=== PATIENT | female | born 1980 | race Hispanic/Latino ===

== ENCOUNTER 2018-03-25 08:05 | Inpatient (IN) | payer SELFPAY ==
[2018-03-25 09:01] LABS: BHCG - Serum Negative (NEGATIVE); Pregs Control Background? CLEAR/WHITE (CLR/WHITE); Pregs Control Bar Appear? YES (CONTROL BAR)
[2018-03-25 09:20] LABS: Chloride 91 mmol/L (98-107); Potassium 3.3 mmol/L (3.5-5.1); Sodium 120 mmol/L (136-145)
[2018-03-25] MEDS ORDERED: Morphine 4 MG/ML VIAL ONE ×3 (09:58→21:03)
[2018-03-25 10:30] LABS: Carbon Dioxide 18 mmol/L (22-29)
[2018-03-25 10:31] LABS: Anion Gap 14 mmol/L (10-20)
[2018-03-25 10:33] LABS: BUN (Urea Nitrogen) 7 mg/dL (7.0-18.7)
[2018-03-25 10:34] LABS: Bilirubin, Total 0.2 mg/dL (0.2-1.2); Calc. Creatinine Clearance 0 mL/min (70-130); Calcium 7.7 mg/dL (7.8-10.44); Estimated GFR-MDRD 90; Glucose 335 mg/dL (70-105)
[2018-03-25 10:35] LABS: Albumin 3.4 g/dL (3.5-5.0); Globulin 1.6 g/dL (2.4-3.5)
[2018-03-25 10:37] LABS: AST (SGOT) 18 U/L (5-34); Alkaline Phosphatase 83 U/L (40-150)
[2018-03-25 10:38] LABS: ALT (SGPT) 36 U/L (8-55)
[2018-03-25 10:39] LABS: Lipase 982 U/L (8-78)
[2018-03-25 10:41] LABS: Bilirubin Negative (Negative); Blood, Urine Negative (Negative); Clarity CLEAR (Clear); Glucose, Urine (Dipstick) >=1000 mg/dL (Negative); Leukocyte Negative (Negative); Nitrite Negative (Negative); Protein, Urine (Dipstick) Negative (Neg-Trace); Specific Gravity, Urine 1.032 (1.002-1.036); Urobilinogen 0.2 mg/dL (0.2-1.0)
[2018-03-25 12:09] LABS: Troponin I Less than 0.010 ng/mL (< 0.028)
[2018-03-25] MEDS ORDERED: Insulin Regular 100 units/100 ml in NS IVPB SCH (12:45)
--- NOTE | 2018-03-25 12:48 | PDOC.EVN ---
Event Note - Event Note Event Note: I was called to admit the patient. This patient has triglycerides uncountable above 9500, the patient appears very ill, is hemodynamically stable but appears sick. Will need emergent TPE which is not done here. Case d/w GI as well as ER attending. For now will try ER to ER transfer for plasma exchange, will cancel the admission. Will assist in stabilizing patient in the ER. Will do insulin drip as well as heparin drip, start D5W at 150cc/hr if sugars drop below 200, will check sugars q4hrs. Will hold off on admission as the patient requires TPE which is not done here. If no facility is available then will admit the patient and check KUB in AM, repeat triglycerides in AM, cont with heparin drip and insulin drip, will also repeat electrolytes and check fibrinogen panel, will give rocephin 1g IV q24hrs. VERY HIGH RISK for necrotizing pancreatitis if TPE not done in a timely manner. Case and plan d/w patient, family, ER and GI attending at length, everyone is in agreement with this plan. Nurse updated and to call me if any issues.
[2018-03-25] MEDS ORDERED: Sodium Chloride 0.9% 1,000 ML IV PRN ×4 (13:02)
[2018-03-25] MEDS ORDERED: CCU Electrolyte Replacement 1 EACH IVPB SCH (13:02)
[2018-03-25] MEDS ORDERED: NS 0.9% w/ 20 MEQ KCL 1,000 ML IV PRN ×2 (13:02)
[2018-03-25] MEDS ORDERED: Dextrose 5 %-0.45 % NaCl 1,000 ML IV PRN (13:02)
[2018-03-25] MEDS ORDERED: HUMULIN R 100 UNITS in Sodium Chloride 0.9% 100 ML IVPB SCH (13:15)
[2018-03-25] MEDS ORDERED: Heparin 10,000 UNITS/ 10 ML VIAL SLOW IVP SCH ×2 (13:15→22:00)
[2018-03-25] MEDS ORDERED: Heparin 25,000 units/D5W 500 ML IVPB SCH (13:15)
[2018-03-25] MEDS ORDERED: Potassium Phosphate 9 MMOL in Sodium Chloride 0.9% 100 ML IVPB PRN (13:18)
[2018-03-25] MEDS ORDERED: Potassium Chloride 40 MEQ in Sodium Chloride 0.9% 250 ML 250 ML IVPB PRN (13:18)
[2018-03-25] MEDS ORDERED: Potassium Phosphate 12 MMOL in Sodium Chloride 0.9% 250 ML 250 ML IV PRN (13:18)
[2018-03-25] MEDS ORDERED: CCU ELECTROLYTE REPLACEMENT PROTOCOL FS PRN (13:18)
[2018-03-25] MEDS ORDERED: Potassium Phosphate 15 MMOL in Sodium Chloride 0.9% 250 ML 250 ML IV PRN (13:18)
[2018-03-25] MEDS ORDERED: Magnesium 2 GM/NS 0.9% 100 ML 2 GM in Premix Bag 1 BAG IVPB PRN (13:18)
[2018-03-25] MEDS ORDERED: Potassium Chloride 20 MEQ TAB PO PRN (13:18)
[2018-03-25] MEDS ORDERED: Magnesium Oxide 400 MG TAB PO PRN ×2 (13:18)
[2018-03-25] MEDS ORDERED: Potassium Chloride 40 MEQ in Premix Bag 1 BAG IVPB PRN (13:18)
[2018-03-25 13:19] LABS: Chloride 98 mmol/L (98-107); Potassium 3.2 mmol/L (3.5-5.1)
[2018-03-25 13:20] LABS: Anion Gap 8 mmol/L (10-20); Carbon Dioxide 19 mmol/L (22-29); Sodium 122 mmol/L (136-145)
[2018-03-25 13:21] LABS: BUN (Urea Nitrogen) 7 mg/dL (7.0-18.7); Calcium 7.4 mg/dL (7.8-10.44); Glucose 278 mg/dL (70-105)
[2018-03-25 13:22] LABS: Calc. Creatinine Clearance 0 mL/min (70-130); Estimated GFR-MDRD 89
[2018-03-25 13:45] LABS: Hemoglobin 13.3 g/dL (12.0-16.0); Platelet Count 165 thou/uL (130-400)
[2018-03-25] MEDS ORDERED: cefTRIAXone\\ROCEPHIN 2 GM in Sodium Chloride 0.9% 100 ML IVPB SCH (14:00)
[2018-03-25 14:21] LABS: Sodium 136 mmol/L (136-145)
[2018-03-25 14:22] LABS: Chloride 103 mmol/L (98-107); Glucose 248 mg/dL (70-105); Potassium 3.8 mmol/L (3.5-5.1)
[2018-03-25 14:23] LABS: Anion Gap 18 mmol/L (10-20); Calcium 7.4 mg/dL (7.8-10.44); Carbon Dioxide 19 mmol/L (22-29)
[2018-03-25 14:25] LABS: BUN (Urea Nitrogen) 5 mg/dL (7.0-18.7); Calc. Creatinine Clearance 0 mL/min (70-130); Estimated GFR-MDRD 90
[2018-03-25] MEDS ORDERED: Insulin Regular 300 UNITS/3 ML VIAL ONE (14:50)
[2018-03-25] MEDS ORDERED: Ondansetron PF 4 MG/2 ML Vial ONE ×2 (15:09→21:03)
[2018-03-25] MEDS ORDERED: cefTRIAXone\\ROCEPHIN 2 GM VIAL ONE (15:30)
[2018-03-25] MEDS ORDERED: MEROPENEM 1 GM/50 ML 1 GM in Premix Bag 1 BAG IVPB SCH (15:45)
[2018-03-25] MEDS ORDERED: Metoclopramide HCl 10 MG/2 ML VIAL ONE (15:45)
[2018-03-25 15:58] LABS: Sodium 137 mmol/L (136-145)
[2018-03-25 15:59] LABS: Anion Gap 19 mmol/L (10-20); Carbon Dioxide 18 mmol/L (22-29); Chloride 104 mmol/L (98-107); Potassium 4.1 mmol/L (3.5-5.1)
[2018-03-25 16:00] LABS: Calcium 7.1 mg/dL (7.8-10.44); Glucose 250 mg/dL (70-105)
[2018-03-25 16:01] LABS: Albumin 3.4 g/dL (3.5-5.0); Alkaline Phosphatase 82 U/L (40-150); Bilirubin, Total 0.3 mg/dL (0.2-1.2); Globulin 2.5 g/dL (2.4-3.5); Protein, Total 5.9 g/dL (6.0-8.3)
[2018-03-25 16:02] LABS: ALT (SGPT) 52 U/L (8-55); AST (SGOT) 46 U/L (5-34); BUN (Urea Nitrogen) 5 mg/dL (7.0-18.7); Calc. Creatinine Clearance 0 mL/min (70-130); Estimated GFR-MDRD Greater than 90
--- NOTE | 2018-03-25 16:24 | CT ---
CT ABDOMEN AND PELVIC WITH CONTRAST: HISTORY: Abdominal pain. COMPARISON: CT from 04/03/2012. FINDINGS: There are some mild atelectatic changes in the lung bases. No pericardial effusion. There is diffus e hepatic steatosis. There is inflammation in the anterior perirenal space, surrounding the pancreatic tail, suggesting pa ncreatitis. The pancreatic head is unremarkable. The common bile duct measures up to 5 mm. There are no dilated loops of large or small bowel. There is an indwelling Buck catheter. No hydronephrosis. 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 There is no acute osseous abnormality. IMPRESSION: 1. Findings suggesting uncomplicated acute edematous pancreatitis. 2. Diffuse hepatic steatosis. 3. Nondilated common bile duct. POS: NGUYEN
[2018-03-25] MEDS ORDERED: Heparin 25,000 units/D5W 500 ML ONE (16:27)
[2018-03-25] MEDS ORDERED: Heparin 1,000 UNITS/ML VIAL ONE (16:28)
[2018-03-25] MEDS ORDERED: Iopamidol 370 76% 100 ML VIAL ONE (17:14)
[2018-03-25 18:10] LABS: Anion Gap 15 mmol/L (10-20); BUN (Urea Nitrogen) 4 mg/dL (7.0-18.7); Calc. Creatinine Clearance 0 mL/min (70-130); Calcium 8.3 mg/dL (7.8-10.44); Carbon Dioxide 20 mmol/L (22-29); Chloride 93 mmol/L (98-107); Estimated GFR-MDRD Greater than 90; Glucose 158 mg/dL (70-105); Sodium 125 mmol/L (136-145)
[2018-03-25] MEDS: Metoclopramide HCl 10 MG/2 ML VIAL IVP SCH (18:14)
--- NOTE | 2018-03-25 18:14 | CON ---
DATE OF CONSULTATION: 03/25/2018 TYPE OF CONSULTATION: Gastroenterology consultation. CHIEF COMPLAINT: Abdominal pain. HISTORY OF PRESENT ILLNESS: Ms. Magana is a 37-year-old woman with a history of hypertriglyceridemia, who presented to the emergency room today with severe epigastric pain and vomiting. She started developing diffuse aching, severe upper abdominal pain yesterday morning. The pain progressed and she started vomiting extensively. She went to the emergency room and labs showed very high triglyceride levels and elevated lipase consistent with acute pancreatitis. She quit taking her TriCor about a week before the onset of the symptoms because she ran out of the medication. She has a sister, who has had hypertriglyceridemia induced pancreatitis in the past as well. She has had no recent weight changes. No diarrhea, constipation, or blood in the stool. The pain persists now and she has received pain medicine in the ER with some improvement. OBJECTIVE: GENERAL: She is in no acute distress. Alert and oriented x3. HEENT: Eyes have no scleral icterus. Oropharynx is clear without lesions. No cervical or supraclavicular lymphadenopathy. LUNGS: Clear to auscultation bilaterally. HEART: Regular rate and rhythm without murmur. ABDOMEN: Soft, tender diffusely but more so in the upper abdomen. No guarding. Bowel sounds are hypoactive. EXTREMITIES: No lower extremity edema. Cranial nerves are grossly intact. LABORATORY DATA: Sodium 120, potassium 3.3, chloride 91, CO2 of 18, BUN 7, creatinine 0.72, glucose 335, calcium 7.7, bilirubin 0.2, AST 18, ALT 36, alkaline phosphatase 83, albumin 3.4. Lipase 982 with upper limit of normal at this lab of 78. REVIEW OF SYSTEMS: Negative x10 systems reviewed except as stated in the history of present illness. ALLERGIES: NO KNOWN DRUG ALLERGIES. MEDICATIONS: Prior to admission; 1. Metformin. 2. Lamictal. 3. Gabapentin. 4. Zocor. 5. TriCor, she is on 145 mg daily. 6. Trazodone, which she has not been taking recently. 7. Hydroxyzine. PAST MEDICAL HISTORY: Diabetes mellitus, hypertriglyceridemia, bipolar disorder. PAST SURGICAL HISTORY: Umbilical hernia repair and cholecystectomy. FAMILY HISTORY: Positive for colon cancer in her father in his 70s. She has had no prior colonoscopy. Her mother had colon polyps. She has multiple siblings with hypertriglyceridemia and a sibling who has had hypertriglyceridemia induced pancreatitis. IMPRESSION: Hypertriglyceridemia induced pancreatitis. Her triglyceride level is greater than 9500. She has received 1 L normal saline in the ER. Her calcium is a little bit low at 7.7. Her albumin is 3.4. No other signs of secondary organ failure at this point. Primary goal now is to get the triglyceride level down to try to avoid necrotizing pancreatitis. RECOMMENDATIONS: 1. She is being given additional lactated Ringer's bolus and then will be followed by high rate IV fluid infusion. 2. Insulin drip. We will start 15 units/hour and given now that her blood sugars drop below 300, we will add in D5 normal saline as her maintenance fluid. 3. Continue to follow trend of the triglycerides and other labs. 4. We will evaluate transfer from ER to ER for a center that can do plasmapheresis. Given that there may be a significant delay in initiation of plasmapheresis, again, insulin drip is being started now. Job ID: [id number]
[2018-03-25] MEDS: Sodium Chloride 0.9% 1,000 ML IV SCH (18:15)
[2018-03-25] MEDS ORDERED: D5 1/2 NS w/20 mEq KCL 1,000 ML ONE (18:27)
[2018-03-25] MEDS ORDERED: Potassium Chloride 20 MEQ in Premix Bag 1 BAG IVPB SCH (18:30)
[2018-03-25 19:28] LABS: Carbon Dioxide 19 mmol/L (22-29); Chloride 102 mmol/L (98-107); Potassium 3.2 mmol/L (3.5-5.1); Sodium 136 mmol/L (136-145)
[2018-03-25 19:29] LABS: Anion Gap 18 mmol/L (10-20); Glucose 199 mg/dL (70-105)
[2018-03-25 19:30] LABS: Bilirubin, Total 0.4 mg/dL (0.2-1.2); Protein, Total 5.2 g/dL (6.0-8.3)
[2018-03-25 19:31] LABS: Albumin 3.2 g/dL (3.5-5.0); Alkaline Phosphatase 77 U/L (40-150)
[2018-03-25 19:32] LABS: ALT (SGPT) 46 U/L (8-55); AST (SGOT) 24 U/L (5-34)
[2018-03-25 19:33] LABS: PTT Greater than 250.0 SEC (22.9-36.1)
[2018-03-25 19:45] LABS: BUN (Urea Nitrogen) Less than 4 mg/dL (7.0-18.7); Calc. Creatinine Clearance 0 mL/min (70-130)
[2018-03-25 19:46] LABS: Estimated GFR-MDRD Greater than 90
--- NOTE | 2018-03-25 20:13 | HP ---
DATE OF CONSULTATION: EMERGENCY ROOM CONSULTATION CHIEF COMPLAINT: Abdominal pain. HISTORY OF PRESENT ILLNESS: This is a 37-year-old female, who apparently ran out of her medications 2 to 3 weeks back and has not been taking any of her home medications, insulin, or cholesterol medications for the last 2 to 3 weeks. The patient was taken to the outside facility for not feeling well and transferred here to the emergency room at [facility]. The patient was found to be in DKA as well as pancreatitis. The patient's cholesterol level was above 1400 and triglycerides were unaccountable above 9500. Internal Medicine was consulted for emergency room management and care for her medical problems. The patient currently states that she feels bad and has some nausea as well as abdominal pain. Sister is at bedside provides a history of triglycerides running in the family and apparently, other family members have also had triglyceride-induced pancreatitis before. The patient otherwise has no other complaints or issues. No alleviating or aggravating factors. Denies that this has ever happened to her before. The patient is seen and examined in the ER. All questions answered. Family at bedside. ALLERGIES: SULFAMETHOXAZOLE AND TRIMETHOPRIM. PAST MEDICAL HISTORY: Hypertension, hyperlipidemia, and diabetes mellitus. SOCIAL HISTORY: Denies smoking or drinking. FAMILY HISTORY: Noncontributory. REVIEW OF SYSTEMS: All systems reviewed. Pertinent positives in HPI, otherwise negative. MEDICATIONS: See MAR. PHYSICAL EXAMINATION: VITAL SIGNS: Blood pressure 110/88, temperature of 98, heart rate of 100, and saturations 100% on room air. GENERAL: The patient appears in moderate discomfort, lying in bed. HEENT: Pupils equal and reactive to light and accommodation. Extraocular muscles intact. Oral cavity, moist and pink. NECK: Supple and nontender. Mobile thyroid appreciated. CARDIOVASCULAR: Regular rate and rhythm. S1 and S2. No murmurs, rubs, or gallops appreciated. PULMONARY: Clear to auscultation bilaterally. No increase in AP diameter. No respiratory distress. ABDOMEN: Positive tenderness to palpation on the epigastric region. Slightly rotund abdomen. Positive bowel sounds. Otherwise, no rebound or guarding noted. EXTREMITIES: Trace pitting edema. 2+ peripheral pulses bilaterally noted. NEUROLOGIC: Cranial nerves 2 through 12 intact. Follows all commands. LABORATORY DATA: CBC within normal limits. Basic metabolic panel shows serum sodium of 122, potassium of 3.2, bicarb of 19, and glucose of 278. Hemoglobin is 7.6. Calcium 7.4. Triglycerides above 9500 unaccountable, cholesterol 1480, and lipase 982. Beta-hydroxybutyric acid positive at 0.41. ASSESSMENT: 1. Diabetic ketoacidosis. 2. Hypertriglyceridemia-induced pancreatitis. 3. Pancreatitis. 4. Abdominal pain. 5. Hypertension. 6. Diabetes mellitus, type 2. 7. Edema. PLAN: At this point in time, we will keep the patient in the emergency room and try to transfer the patient to the facility that can perform total plasmapheresis and plasma exchange. The patient is in rapid need of TPE, otherwise she is very high risk for having necrotizing pancreatitis. We will start the patient on an insulin drip as well as a heparin drip. We will also give the patient Rocephin IV [address] scan with contrast pending, bolus fluids. Accu-Cheks q.1 hour per DKA protocol. Also, lab checks and lab data are to be done in the evening as well as in the a.m. GI evaluation completed. Renal evaluation completed. At this point in time, this facility does not have the ability to perform total plasma exchange. It will be recommended that this patient will be transferred ER to ER to facility that can perform total plasma exchange as medically it is very difficult to bring down levels of triglycerides. Plasmapheresis if done in the next 24 to 48 hours, she probably would have a good outcome considering that her pain symptoms started approximately 12 hours ago. Case and plan discussed with the patient and family at length. They understand and agree with this plan. Job ID: [id number]
[2018-03-25 20:32] LABS: Glucose 194 mg/dL (70-105)
--- NOTE | 2018-03-25 20:42 | CON ---
DATE OF CONSULTATION: TYPE OF CONSULTATION: Nephrology. REASON FOR CONSULTATION: Hypertriglyceridemia. HISTORY OF PRESENT ILLNESS: This is a 37-year-old female, who presented to the hospital with prolonged nausea and vomiting. The patient was noted to have a triglyceride of more than 9000 and was noted to have pancreatitis. The patient also had elevated sugars and was noted to have hyponatremia and hypokalemia. The patient can give no further history. PAST MEDICAL HISTORY: For hypertension, diabetes mellitus poorly controlled, seizures, cholecystectomy for ESRD. ALLERGIES: REVIEWED. HOME MEDICATIONS: List reviewed. REVIEW OF SYSTEMS: A 15-point review of system was performed negative except for noted above. GENERAL: HEAD: NECK: No swelling or lumps. NOSE: No epistaxis or discharge. EYES: No diplopia or pain. RESPIRATORY: CARDIOVASCULAR: GASTROINTESTINAL: /ELECTROMECHANICAL ASSEMBLY TECHNICIAN: MUSCULOSKELETAL: No joint pain. NEUROPSYCHIATIC SYSTEMS: No suicidal ideation. No ideation. SKIN: Denies any rash or ulcer. CONSTITUTIONAL: No fever or chills. PHYSICAL EXAMINATION: VITAL SIGNS: Pulse 70, breathing 16, and blood pressure 130/70. GENERAL APPEARANCE AND MENTAL STATUS: Fair. HEAD/NECK: Normocephalic. Atraumatic. EYES: EOMI. No deformity. EARS: Clear. No ulcers. NOSE: Intact. No lesions. MOUTH: Clear. No discharge. THROAT: Clear. No exudate. LUNGS: Clear. No crackles. CARDIAC: S1, S2. No rub. ABDOMEN: Benign. Bowel sounds positive. GENITALIA/RECTUM: Buck absent. BACK/EXTREMITIES: Edema 0+. NEUROLOGIC: Alert and motor intact. SKIN: LYMPHATICS: LABORATORY DATA: Sodium 122, potassium 3.2, and creatinine 0.73. ASSESSMENT AND PLAN: 1. Acute kidney injury, chronic kidney disease stage 2 due to dehydration. Continue hydration. We would recommend checking urine sodium. 2. Diabetic ketoacidosis. Management per primary team. 3. Hypertriglyceridemia. Plasmapheresis is not available for and it is not the standard-formal treatment. Management per GI. 4. Hyperglycemia. Management per primary team. I will order a serum osmolality, urine osmolality, and based on these labs, replete the hyponatremia. Hypokalemia, recommend potassium replacement. Overall prognosis is extremely poor. Job ID: [id number]
[2018-03-25 21:34] LABS: Sodium 133 mmol/L (136-145)
[2018-03-25 21:35] LABS: Anion Gap 17 mmol/L (10-20); Carbon Dioxide 17 mmol/L (22-29); Chloride 103 mmol/L (98-107); Potassium 3.7 mmol/L (3.5-5.1)
[2018-03-25 21:36] LABS: Calcium 7.2 mg/dL (7.8-10.44); Glucose 250 mg/dL (70-105)
[2018-03-25 21:37] LABS: BUN (Urea Nitrogen) Less than 4 mg/dL (7.0-18.7)
[2018-03-25 21:38] LABS: Calc. Creatinine Clearance 0 mL/min (70-130); Estimated GFR-MDRD Greater than 90
[2018-03-25] MEDS ORDERED: Heparin 25,000 units/D5W 500 ML IV SCH (22:00)
[2018-03-25 22:42] LABS: Glucose 233 mg/dL (70-105)
--- NOTE | 2018-03-25 23:00 | PDOC.EVN ---
Event Note - Event Note Event Note: Called by ER attending regarding pt and unsuccessful transfer to higher level of care x 3 facilities currently. Pt needs TPE but unavailable at local facility but while awaiting transfer to higher level of care pt will be admitted to CCU and continued on current tx for DKA, IV Heparin, IV abx and hemodynamic monitoring. Spoke with CCU charge nurse regarding need for active transfer when available but will monitor and treat pending transfer in the CCU. Updated pt and sister regarding current status and they verbalize agreement. Pt remains critical due to DKA, Acute Pancreatitis, severe hypertriglyceridemia.
[2018-03-25 23:37] LABS: Glucose 238 mg/dL (70-105)
--- NOTE | 2018-03-25 23:42 | CON ---
DATE OF CONSULTATION: 03/25/2018 HISTORY OF PRESENT ILLNESS: Ms. Magana is a 37-year-old white female who was initially evaluated at [place] [facility] complaining of chest pain. During the initial workup, she was found to have severe hypertriglyceridemia. She was also noted to be hyponatremic. We are consulted for the hyponatremia. This afternoon, on examination of the patient, she was feeling better. REVIEW OF SYSTEMS: No chest pain or shortness of breath. No nausea. No vomiting. No diarrhea. No constipation. No abdominal pain. No syncopal episode. No productive cough. No fever or chills. No diarrhea. No hematochezia. No melena. No hematemesis. Positive for abdominal discomfort. Positive for transient chest pain. MEDICATIONS: Her medications include: 1. Trazodone 100 mg at bedtime. 2. Lamictal 150 mg q.a.m. 3. Metformin 750 mg ER tablet daily. 4. Hydroxyzine 25 mg tablet t.i.d. p.r.n. 5. Fenofibrate 150 mg three times a day. 6. Atorvastatin 20 mg at bedtime. PAST MEDICAL HISTORY: 1. History of hypertriglyceridemia. 2. Hypertension. 3. Type 2 diabetes mellitus. PAST SURGICAL HISTORY: 1. Status post umbilical hernia repair. 2. Status post cholecystectomy. SOCIAL HISTORY: The patient lives in [place]. She is , lives with her sister, one child, occasional smoking previously averaging one-half pack a day. Alcohol, none. Active lifestyle. FAMILY HISTORY: No family history of ESRD. ALLERGIES: BACTRIM. TRAUMA: None. IMMUNIZATION: Up-to-date. HOSPITALIZATIONS: Please see past medical history. PHYSICAL EXAMINATION: VITAL SIGNS: Blood pressure is noted at 130/70, heart rate 70. GENERAL: Noted to be awake, alert, comfortable, not in distress. SKIN: Adequate turgor. HEENT: She has a pinkish conjunctivae. Anicteric sclerae. NECK: No neck mass. No carotid bruits. No JVD. CHEST: No deformities. LUNGS: Clear breath sounds. HEART: Normal sinus rhythm. No murmurs, gallops, or rubs. ABDOMEN: Globular, soft, nontender. No masses. EXTREMITIES: No edema, no deformities. NEUROLOGICAL: Moving all extremities. No tremors or asterixis. No ataxia. LABORATORIES: Verbal report of triglyceride of above 9,500. March 25, 2018, sodium 136, potassium 3.8, chloride 103, carbon dioxide 19, BUN 5, creatinine 0.72, glucose 248, calcium 7.4. Serum osmolality is 288. March 25, 2018, 11:28 a.m., sodium is 122. March 25, 2018, serum sodium 120. Serum osmolality was 295. TSH was reported at 1.0. Cortisol is 20, uric acid 2.5. ASSESSMENT AND PLAN: Urinalysis, relatively benign. Specific gravity of 1032 and a glucose of more than 1000. No protein, no red cell casts. No white cell casts. No pigmented granular casts. Chest x-ray; no CHF. ASSESSMENT AND PLAN: 1. Hyponatremia - this is most likely pseudohyponatremia in a background of markedly elevated triglyceride. Of interest, the serum sodium, when it was low, the serum osmolality was normal. This is seen in people who have hypertriglyceridemia causing pseudohyponatremia. Management is essentially supportive. 2. Hypertriglyceridemia - the patient for possible transfer to an outside hospital to undergo ? plasmapheresis. Due to the pseudohyponatremia diagnosis, we will be signing off. Please call if needed. Job ID: [id number]
[2018-03-26] MEDS ORDERED: HUMULIN R 100 UNITS in Sodium Chloride 0.9% 100 ML IVPB SCH (00:45)
[2018-03-26] MEDS: Metoclopramide HCl 10 MG/2 ML VIAL IVP SCH ×2 (00:45→06:01)
[2018-03-26 00:47] LABS: Glucose 220 mg/dL (70-105)
[2018-03-26 00:52] VITALS: BMI 35.6
[2018-03-26] MEDS ORDERED: Morphine 4 MG/ML VIAL SLOW IVP PRN (01:09)
[2018-03-26] MEDS ORDERED: Ondansetron PF 4 MG/2 ML Vial SLOW IVP PRN (01:10)
[2018-03-26] MEDS: Sodium Chloride 0.9% 1,000 ML IV SCH (01:12)
[2018-03-26] MEDS ORDERED: Ondansetron PF 4 MG/2 ML Vial SLOW IVP SCH (01:15)
[2018-03-26] MEDS: D5 1/2 NS w/20 mEq KCL 1,000 ML IV PRN ×2 (02:57→06:17)
[2018-03-26 02:58] LABS: Creatinine, Urine 117.91 mg/dL (47-110)
[2018-03-26 03:39] LABS: Anion Gap 16 mmol/L (10-20); BUN (Urea Nitrogen) Less than 4 mg/dL (7.0-18.7); Calc. Creatinine Clearance 168 mL/min (70-130); Calcium 7.3 mg/dL (7.8-10.44); Carbon Dioxide 17 mmol/L (22-29); Chloride 100 mmol/L (98-107); Estimated GFR-MDRD Greater than 90; Glucose 204 mg/dL (70-105); Potassium 3.4 mmol/L (3.5-5.1); Sodium 130 mmol/L (136-145)
[2018-03-26] MEDS ORDERED: Potassium Chloride 40 MEQ in Sodium Chloride 0.9% 250 ML 250 ML IVPB SCH (04:45)
[2018-03-26 05:31] VITALS: TEMP 99.3
== END 2018-03-26 06:50 | disposition short-term general hospital (02) | DRG 438 ==
LOC: ERS 08:05 → ERHOLD 10:00 → CCU 03-26 00:20
PROVIDERS: ADMIT Internal Medicine; ATTEND Internal Medicine
DX: K85.80 Other acute pancreatitis without necrosis or infection (principal); E11.10 Type 2 diabetes mellitus with ketoacidosis without coma; N17.9 Acute kidney failure, unspecified; E78.1 Pure hyperglyceridemia; F31.9 Bipolar disorder, unspecified; E87.6 Hypokalemia; E86.0 Dehydration; N18.2 Chronic kidney disease, stage 2 (mild); I12.9 Hypertensive chronic kidney disease with stage 1 through stage 4 chronic kidney disease, or unspecified chronic kidney disease; Z79.84 Long term (current) use of oral hypoglycemic drugs; Z79.899 Other long term (current) drug therapy; Z98.890 Other specified postprocedural states; Z90.49 Acquired absence of other specified parts of digestive tract; Z88.2 Allergy status to sulfonamides
CPT/HCPCS: 36415; 36416; 74177; 80048; 81003; 82010; 82533; 82570; 82947; 83690; 83930; 83935; 84300; 84443; 84478; 84550; 84703; 85730; 93005; J0131; J0696; J1644; J1815; J2185; J2270; J2405; J2765; J3480; J7050

== ENCOUNTER 2018-12-27 23:22 | Emergency (ER) | payer SELFPAY ==
[2018-12-27] MEDS ORDERED: Ondansetron PF 4 MG/2 ML Vial ONE (23:42)
[2018-12-27 23:51] LABS: #Eosinphils 0.2 thou/uL (0.0-0.7); #Lymphocytes 2.8 thou/uL (1.20-3.40); #Monocytes 0.6 thou/uL (0.11-0.59); #Neutrophils 4.2 thou/uL (1.40-6.50); %Basophils 0.2 % (0.0-1.0); %Eosinophils 2.5 % (0.0-10.0); %Lymphocytes 35.6 % (21.0-51.0); %Monocytes 7.4 % (0.0-10.0); %Neutrophils 54.2 % (42.0-75.0); Hemoglobin 14.9 g/dL (12.0-16.0); Mean Corpuscular HGB CONC 35.1 g/dL (32.0-36.0); Mean Corpuscular Hemoglobin 30.8 pg (27.0-31.0); Mean Corpuscular Volume 87.9 fL (78.0-98.0); Mean Platelet Volume 7.5 fL (7.4-10.4); Platelet Count 311 thou/uL (130-400); RBC Distribution Width 13.3 % (11.5-14.5); Red Blood Cell (RBC) Count 4.82 mill/uL (4.20-5.40); White Blood Cell (WBC) Count 7.8 thou/uL (4.8-10.8)
[2018-12-27 23:51] LABS: Bilirubin Negative (Negative); Blood, Urine 2+ (Negative); Clarity Turbid (Clear); Glucose, Urine (Dipstick) Normal (Negative); Leukocyte 500 Leu/uL (Negative); Nitrite Negative (Negative); Protein, Urine (Dipstick) 30 mg/dL (Neg-Trace); Urobilinogen Normal mg/dL (Less than 2)
[2018-12-27 23:59] LABS: RBC/HPF 0-3 HPF (0-3)
[2018-12-28] LABS: Bacteria/HPF 1+ HPF (None Seen); Transitional Epithelial 0-3 HPF (None Seen)
[2018-12-28 00:12] LABS: ALT (SGPT) 30 U/L (8-55); AST (SGOT) 15 U/L (5-34); Alkaline Phosphatase 84 U/L (40-110); Anion Gap 14 mmol/L (10-20); BUN (Urea Nitrogen) 16 mg/dL (7.0-18.7); Bilirubin, Total 0.2 mg/dL (0.2-1.2); Calc. Creatinine Clearance 0 mL/min (70-130); Calcium 9.4 mg/dL (7.8-10.44); Carbon Dioxide 25 mmol/L (22-29); Chloride 103 mmol/L (98-107); Estimated GFR-MDRD 78; Globulin 2.4 g/dL (2.4-3.5); Glucose 134 mg/dL (70-105); Potassium 3.5 mmol/L (3.5-5.1); Protein, Total 6.4 g/dL (6.0-8.3); Sodium 138 mmol/L (136-145)
[2018-12-28] MEDS ORDERED: Morphine 4 MG/ML VIAL ONE (00:19)
[2018-12-28 00:21] LABS: BHCG - Serum Negative (NEGATIVE); Pregs Control Background? CLEAR/WHITE (CLR/WHITE); Pregs Control Bar Appear? YES (CONTROL BAR)
[2018-12-28] MEDS ORDERED: Azithromycin 250 MG TAB ONE (02:57)
[2018-12-28] MEDS ORDERED: Lidocaine 1% PF 5 ML VIAL ONE (02:57)
[2018-12-28] MEDS ORDERED: cefTRIAXone\\ROCEPHIN 250 MG VIAL ONE (02:57)
--- NOTE | 2018-12-28 07:59 | ULT ---
PRELIMINARY REPORT/[facility]/EMERGENCY AFTER HOURS PROCEDURE: PROCEDURE INFORMATION: Exam: US Pelvis Complete, Transabdominal and US Pelvis, Transvaginal and US Duplex Artery and Vein, O varies, Complete Exam date and time: 12/28/2018 1:06 AM Clinical history: 38 years old, female; Slow transit; Patient HX: Pelvic pain from midline to llq x 2 days, constipation (on/off) TECHNIQUE: Imaging protocol: Real-time transabdominal and transvaginal pelvic ultrasound (complete) with image d ocumentation. Transvaginal imaging was used for better evaluation of the endometrium and adnexa. Real -time duplex ultrasound scan of the arterial and venous flow of the ovaries with B-mode, color Doppler flow and spectral waveform analysis. COMPARISON: No relevant prior studies available. FINDINGS: Uterus/cervix: Uterus measures 10.1 x 4.7 x 5.8 cm. There is 4.9 x 4.3 x 3.2 cm heterogenes focus in the fundus most consistent with fibroid. Endometrial stripe is normal at 10 mm. Right adnexa: Normal. No mass. Normal ovarian blood flow. Left adnexa: Normal. No mass. Normal ovarian blood flow. Free fluid: None. IMPRESSION: No evidence for torsion or ovarian mass. Uterine fibroid. Thank you for allowing us to participate in the care of your patient. Dictated and Authenticated by: Catrachita Albarran MD 12/28/2018 2:12 AM Central Time ([place] & [place]) FINAL REPORT TRANSABDOMINAL AND TRANSVAGINAL PELVIC ULTRASOUND WITH SHAHID AND COLOR FLOW AND SPECTRAL DOPPLER IMAGI NG: I agree with the preliminary report given by Dr. Catrachita Albarran of [facility]. POS: OFF
[2018-12-29 23:48] LABS: Chlamydia by PCR Not Detected (NotDetected); GC by PCR Not Detected (NotDetected)
== END 2018-12-28 03:14 | disposition home or self-care (01) ==
LOC: ERS 23:22
DX: N73.9 Female pelvic inflammatory disease, unspecified (principal); D25.9 Leiomyoma of uterus, unspecified; E78.5 Hyperlipidemia, unspecified; E78.00 Pure hypercholesterolemia, unspecified; M19.90 Unspecified osteoarthritis, unspecified site; E11.9 Type 2 diabetes mellitus without complications; F42.9 Obsessive-compulsive disorder, unspecified; F41.9 Anxiety disorder, unspecified; F32.9 Major depressive disorder, single episode, unspecified; F17.210 Nicotine dependence, cigarettes, uncomplicated; Z79.899 Other long term (current) drug therapy
CPT/HCPCS: 76856; 80053; 81003; 81015; 83690; 84703; 85025; 87086; 87480; 87491; 87510; 87591; 87660; 96372; 96374; 96375; J0696; J2001; J2270; J2405

== ENCOUNTER 2019-05-20 13:00 | Emergency (ER) | payer SELFPAY ==
[2019-05-20] MEDS ORDERED: Ondansetron PF 4 MG/2 ML Vial ONE (13:40)
[2019-05-20 13:55] LABS: #Eosinphils 0.3 thou/uL (0.0-0.7); #Lymphocytes 1.4 thou/uL (1.20-3.40); #Monocytes 0.7 thou/uL (0.11-0.59); #Neutrophils 6.8 thou/uL (1.40-6.50); %Basophils 0.5 % (0.0-1.0); %Eosinophils 3.1 % (0.0-10.0); %Lymphocytes 15.1 % (21.0-51.0); %Monocytes 7.2 % (0.0-10.0); %Neutrophils 74.1 % (42.0-75.0); Hemoglobin 15.1 g/dL (12.0-16.0); Mean Corpuscular HGB CONC 35.7 g/dL (32.0-36.0); Mean Corpuscular Hemoglobin 31.8 pg (27.0-31.0); Mean Corpuscular Volume 89.1 fL (78.0-98.0); Mean Platelet Volume 7.2 fL (7.4-10.4); Platelet Count 231 thou/uL (130-400); RBC Distribution Width 13.5 % (11.5-14.5); Red Blood Cell (RBC) Count 4.74 mill/uL (4.20-5.40); White Blood Cell (WBC) Count 9.1 thou/uL (4.8-10.8)
[2019-05-20 14:17] LABS: ALT (SGPT) 38 U/L (8-55); AST (SGOT) 32 U/L (5-34); Albumin 3.6 g/dL (3.5-5.0); Alkaline Phosphatase 94 U/L (40-110); Anion Gap 14 mmol/L (10-20); BUN (Urea Nitrogen) 14 mg/dL (7.0-18.7); Bilirubin, Total 0.2 mg/dL (0.2-1.2); Calc. Creatinine Clearance 0 mL/min (70-130); Calcium 8.3 mg/dL (7.8-10.44); Carbon Dioxide 24 mmol/L (22-29); Chloride 105 mmol/L (98-107); Estimated GFR-MDRD Greater than 90; Globulin 2.2 g/dL (2.4-3.5); Glucose 118 mg/dL (70-105); Lipase 95 U/L (8-78); Potassium 3.6 mmol/L (3.5-5.1); Protein, Total 5.8 g/dL (6.0-8.3); Sodium 139 mmol/L (136-145)
[2019-05-20 14:52] LABS: Bacteria/HPF None Seen HPF (None Seen); Bilirubin Negative (Negative); Blood, Urine Negative (Negative); Clarity Clear (Clear); Glucose, Urine (Dipstick) Normal (Negative); Leukocyte Negative Leu/uL (Negative); Nitrite Negative (Negative); Protein, Urine (Dipstick) 30 mg/dL (Neg-Trace); RBC/HPF 0-3 HPF (0-3); Squamous Epithelial 0-3 HPF (0-3); WBC/HPF 0-3 HPF (0-3)
[2019-05-20 15:03] LABS: BHCG - Serum Negative (NEGATIVE); Pregs Control Background? CLEAR/WHITE (CLR/WHITE); Pregs Control Bar Appear? YES (CONTROL BAR)
[2019-05-20] MEDS ORDERED: Morphine 4 MG/ML VIAL ONE (15:16)
== END 2019-05-20 16:45 | disposition home or self-care (01) ==
LOC: ERS 13:00
DX: R11.2 Nausea with vomiting, unspecified (principal); R10.9 Unspecified abdominal pain; E11.9 Type 2 diabetes mellitus without complications; E78.5 Hyperlipidemia, unspecified; M19.90 Unspecified osteoarthritis, unspecified site; F17.210 Nicotine dependence, cigarettes, uncomplicated; E78.00 Pure hypercholesterolemia, unspecified; Z79.84 Long term (current) use of oral hypoglycemic drugs; Z79.899 Other long term (current) drug therapy
CPT/HCPCS: 36415; 51701; 80053; 81003; 81015; 83690; 84703; 85025; 96361; 96374; 96375; A4353; J2270; J2405

== ENCOUNTER 2019-09-06 11:02 | Emergency (ER) | payer SELFPAY ==
--- NOTE | 2019-09-07 11:35 | EKG ---
Test Reason : Blood Pressure : / mmHG Vent. Rate : 069 BPM Atrial Rate : 069 BPM P-R Int : 142 ms QRS Dur : 060 ms QT Int : 432 ms P-R-T Axes : 033 012 036 degrees QTc Int : 462 ms Normal sinus rhythm Normal ECG Confirmed by PRIYA CELIS DO ([id number]), food editor EMILY ORELLANA ([id number]) on 09/07/2019 11:35:27 AM Referred By: Confirmed By:PRIYA CELIS DO
== END 2019-09-06 11:35 | disposition short-term general hospital (02) ==
LOC: ERS 11:02
DX: R42 Dizziness and giddiness (principal); E78.5 Hyperlipidemia, unspecified; E78.00 Pure hypercholesterolemia, unspecified; F41.9 Anxiety disorder, unspecified; F32.9 Major depressive disorder, single episode, unspecified; F17.210 Nicotine dependence, cigarettes, uncomplicated; Z79.84 Long term (current) use of oral hypoglycemic drugs; Z79.899 Other long term (current) drug therapy
CPT/HCPCS: 93005

== ENCOUNTER 2020-05-09 20:54 | Emergency (ER) | payer SELFPAY | END 2020-05-09 23:36 | disposition left against medical advice (07) | LOC: ERS 20:54 | DX: Z53.21 Procedure and treatment not carried out due to patient leaving prior to being seen by health care provider (principal) ==

== ENCOUNTER 2020-07-15 12:37 | Emergency (ER) | payer SELFPAY ==
[2020-07-15 12:59] LABS: #Eosinphils 0.2 thou/uL (0.0-0.7); #Lymphocytes 1.5 thou/uL (1.20-3.40); #Monocytes 0.4 thou/uL (0.11-0.59); #Neutrophils 4.3 thou/uL (1.40-6.50); %Basophils 0.3 % (0.0-1.0); %Eosinophils 3.8 % (0.0-10.0); %Lymphocytes 23.1 % (21.0-51.0); %Monocytes 6.6 % (0.0-10.0); %Neutrophils 66.2 % (42.0-75.0); Hemoglobin 13.8 g/dL (12.0-16.0); Mean Corpuscular HGB CONC 33.6 g/dL (32.0-36.0); Mean Corpuscular Hemoglobin 30.1 pg (27.0-31.0); Mean Corpuscular Volume 89.6 fL (78.0-98.0); Mean Platelet Volume 7.4 fL (7.4-10.4); Platelet Count 277 thou/uL (130-400); RBC Distribution Width 12.5 % (11.5-14.5); Red Blood Cell (RBC) Count 4.59 mill/uL (4.20-5.40); White Blood Cell (WBC) Count 6.5 thou/uL (4.8-10.8)
[2020-07-15 13:34] LABS: ALT (SGPT) 38 U/L (8-55); AST (SGOT) 18 U/L (5-34); Albumin 4.4 g/dL (3.5-5.0); Alkaline Phosphatase 109 U/L (40-110); Anion Gap 14 mmol/L (10-20); BUN (Urea Nitrogen) 10 mg/dL (7.0-18.7); Bilirubin, Total 0.3 mg/dL (0.2-1.2); Calc. Creatinine Clearance 0 mL/min (70-130); Calcium 9.5 mg/dL (7.8-10.44); Carbon Dioxide 27 mmol/L (22-29); Chloride 100 mmol/L (98-107); Globulin 2.6 g/dL (2.4-3.5); Glucose 268 mg/dL (70-105); Potassium 4.3 mmol/L (3.5-5.1); Sodium 137 mmol/L (136-145)
[2020-07-15] MEDS ORDERED: Aspirin Chewable 81 MG TAB ONE (15:39)
== END 2020-07-15 17:20 | disposition home or self-care (01) ==
LOC: ERS 12:37
DX: R07.89 Other chest pain (principal); E78.5 Hyperlipidemia, unspecified; E11.9 Type 2 diabetes mellitus without complications; F17.210 Nicotine dependence, cigarettes, uncomplicated; Z79.4 Long term (current) use of insulin
CPT/HCPCS: 36415; 71046; 80053; 83690; 84484; 85025; 93005; 94760

== ENCOUNTER 2023-12-27 16:22 | Emergency (ER) | payer MEDICAID, OTHER ==
[~2023-12-27 16:22] MED LIST: Iopamidol-370 76% 500 ML MDV (1 ML CHARGE) ONE
[2023-12-27 17:04] LABS: #Basophils Less than 0.03 10x3/uL (0.0-0.2); %Basophils 0.3 % (0.0-1.0); %Eosinophils 3.2 % (0.0-10.0); %Lymphocytes 24.6 % (21.0-51.0); %Monocytes 7.4 % (0.0-10.0); %Neutrophils 64.2 % (42.0-75.0); Hemoglobin 12.5 g/dL (12.0-16.0); Mean Corpuscular HGB CONC 32.9 g/dL (32.0-36.0); Mean Corpuscular Hemoglobin 27.4 pg (27.0-31.0); Mean Corpuscular Volume 83.3 fL (78.0-98.0); Platelet Count 330 10x3/uL (130-400); RBC Distribution Width 14.8 % (11.5-14.5); Red Blood Cell (RBC) Count 4.56 mill/uL (4.20-5.40)
[2023-12-27] MEDS ORDERED: Ondansetron PF 4 MG/2 ML Vial ONE (17:11)
[2023-12-27] MEDS ORDERED: Ketorolac Tromethamine 30 MG (1 mL) VIAL ONE ×2 (17:11→17:19)
[2023-12-27 17:12] LABS: BHCG - Serum Negative (NEGATIVE); Pregs Control Background? CLEAR/WHITE (CLR/WHITE); Pregs Control Bar Appear? YES (CONTROL BAR)
[2023-12-27 17:22] LABS: ALT (SGPT) 83 U/L (8-55); AST (SGOT) 57 U/L (5-34); Albumin 3.8 g/dL (3.5-5.0); Alkaline Phosphatase 44 U/L (40-110); Anion Gap 9 mmol/L (10-20); BUN (Urea Nitrogen) 9 mg/dL (7.0-18.7); Bilirubin, Total 0.2 mg/dL (0.2-1.2); Calc. Creatinine Clearance 0 mL/min (70-130); Calcium 9.2 mg/dL (7.8-10.44); Carbon Dioxide 28 mmol/L (22-29); Chloride 108 mmol/L (98-107); Estimated GFR 86; Globulin 2.8 g/dL (2.4-3.5); Glucose 78 mg/dL (70-105); Lipase 54 U/L (8-78); Potassium 4.2 mmol/L (3.5-5.1); Protein, Total 6.6 g/dL (6.0-8.3); Sodium 141 mmol/L (136-145)
[2023-12-27 17:36] LABS: Bilirubin Negative (Negative); Blood, Urine Negative (Negative); CAUTI Indications for Culture Dysuria,urgency,freq; Clarity Clear (Clear); Glucose, Urine (Dipstick) Normal (Negative); Ketone, Urine Negative (Negative); Leukocyte Negative Leu/uL (Negative); Nitrite Negative (Negative); Protein, Urine (Dipstick) Negative (Neg-Trace); RBC/HPF None Seen HPF (0-3); Specific Gravity, Urine 1.008 (1.002-1.036); Urobilinogen Normal mg/dL (Less than 2); WBC/HPF 0-3 HPF (0-3); pH, Urine 7.5 (5.0-9.0)
[2023-12-27 17:37] LABS: Bacteria/HPF 1+ HPF (None Seen)
[2023-12-27 17:38] LABS: Urine Culture Reflex No No
== END 2023-12-27 18:31 | disposition home or self-care (01) ==
LOC: ERS 16:22
DX: E27.9 Disorder of adrenal gland, unspecified (principal); R82.71 Bacteriuria; R16.0 Hepatomegaly, not elsewhere classified; E11.42 Type 2 diabetes mellitus with diabetic polyneuropathy; I10 Essential (primary) hypertension; F17.200 Nicotine dependence, unspecified, uncomplicated
CPT/HCPCS: 36415; 74177; 80053; 81001; 83690; 84703; 85025; 93005; 96374; 96375; J1885; J2405; Q9967

== ENCOUNTER 2024-04-01 11:08 | Outpatient (CLI) | payer OTHER | END 2024-04-01 11:09 | disposition home or self-care (01) | LOC: BICMAMMO 11:08 | PROVIDERS: ATTEND Family Medicine | DX: Z12.31 Encounter for screening mammogram for malignant neoplasm of breast (principal) | CPT/HCPCS: 77063; 77067 ==

== ENCOUNTER 2024-11-21 08:25 | Emergency (ER) | payer OTHER ==
[2024-11-21] MEDS ORDERED: Metoclopramide HCl 10 MG (2 mL) VIAL ONE (09:22)
[2024-11-21 09:38] LABS: Bacteria/HPF None Seen HPF (None Seen); CAUTI Indications for Culture Dysuria,urgency,freq; Glucose, Urine (Dipstick) Normal (Negative); Leukocyte Negative Leu/uL (Negative); Protein, Urine (Dipstick) Negative (Neg-Trace); RBC/HPF 0-3 HPF (0-3); Specific Gravity, Urine 1.020 (1.002-1.036); WBC/HPF 0-3 HPF (0-3)
[2024-11-21 09:47] LABS: #Basophils Less than 0.03 10x3/uL (0.0-0.2); #Eosinophils 0.26 10x3/uL (0.0-0.7); #Monocytes 0.23 10x3/uL (0.11-0.59); #Neutrophils 3.02 10x3/uL (1.40-6.50); %Basophils 0.4 % (0.0-1.0); %Eosinophils 5.4 % (0.0-10.0); %Lymphocytes 26.2 % (21.0-51.0); %Monocytes 4.8 % (0.0-10.0); %Neutrophils 63.2 % (42.0-75.0); Hematocrit 40.4 % (36.0-47.0); Hemoglobin 13.0 g/dL (12.0-16.0); Mean Corpuscular Hemoglobin 26.4 pg (27.0-31.0); Mean Corpuscular Volume 82.1 fL (78.0-98.0); Platelet Count 335 10x3/uL (130-400); Red Blood Cell (RBC) Count 4.92 mill/uL (4.20-5.40); White Blood Cell (WBC) Count 4.78 10x3/uL (4.8-10.8)
[2024-11-21 09:58] LABS: BHCG - Serum Negative (NEGATIVE); Pregs Control Background? CLEAR/WHITE (CLR/WHITE); Pregs Control Bar Appear? YES (CONTROL BAR)
[2024-11-21 10:01] LABS: Urine Culture Reflex No No
[2024-11-21 10:04] LABS: ALT (SGPT) 17 U/L (Less than 34); AST (SGOT) 21 U/L (11-34); Albumin 4.5 g/dL (3.1-4.5); Alkaline Phosphatase 73 U/L (40-110); Anion Gap 13 mmol/L (10-20); BUN (Urea Nitrogen) 9 mg/dL (7.0-18.7); Bilirubin, Total 0.2 mg/dL (0.3-1.2); Calc. Creatinine Clearance 0 mL/min (70-130); Calcium 9.6 mg/dL (7.8-10.44); Carbon Dioxide 27 mmol/L (22-29); Chloride 106 mmol/L (98-107); Globulin 2.9 g/dL (2.4-3.5); Glucose 86 mg/dL (70-105); Lipase 66 U/L (8-78); Potassium 3.9 mmol/L (3.5-5.1); Sodium 142 mmol/L (136-145)
== END 2024-11-21 11:28 | disposition home or self-care (01) ==
LOC: ERS 08:25
DX: B34.9 Viral infection, unspecified (principal); I10 Essential (primary) hypertension; E11.9 Type 2 diabetes mellitus without complications; K21.9 Gastro-esophageal reflux disease without esophagitis; F17.210 Nicotine dependence, cigarettes, uncomplicated; Z79.899 Other long term (current) drug therapy; Z79.84 Long term (current) use of oral hypoglycemic drugs
CPT/HCPCS: 71046; 80053; 81001; 83690; 84484; 84703; 85025; 87081; 87428; 87430; 93005; 96361; 96374; J2765